=== PATIENT | female | born 1980 | race Caucasian/White ===

== ENCOUNTER 2018-10-18 23:55 | Emergency (ER) | payer MEDICAID, OTHER ==
[~2018-10-18] VITALS: Ht 167.6 cm; Wt 81.8 kg
[~2018-10-18 23:55] MED LIST: LEVE750T6 PO
[2018-10-19] MEDS ORDERED: normal saline 1000ML IV soln IVB ONE (00:05)
--- NOTE | 2018-10-19 00:29 | NUR ---
spoke to poison control macey about pt. stated 6 hr obs, ekg, watch for seizures, n/v, metabolic acidosis, agititation, and confusion. other labs have already been ordered by dr sales
[2018-10-19 00:43] LABS: BASOPHILS # (AUTO) 0.1 X10'3 (0-0.2); BASOPHILS % (AUTO) 0.6 % (0-1); EOSINOPHILS # (AUTO) 0.2 X10'3 (0-0.9); EOSINOPHILS % (AUTO) 1.9 % (0-6); HEMATOCRIT 43.2 % (35.0-45.0); LYMPHOCYTES # (AUTO) 2.3 X10'3 (1.1-4.8); LYMPHOCYTES % (AUTO) 24.5 % (21-51); MEAN CORPUSCULAR HEMOGLOBIN 31.1 PG (27.0-31.0); MEAN CORPUSCULAR HGB CONC 32.5 % (33.0-36.5); MEAN CORPUSCULAR VOLUME 95.7 FL (78-98); MEAN PLATELET VOLUME 7.5 FL (7.4-10.4); MONOCYTES # (AUTO) 0.6 X10'3 (0-0.9); MONOCYTES % (AUTO) 6.7 % (2-12); NEUTROPHILS # (AUTO) 6.1 X10'3 (1.8-7.7); NEUTROPHILS % (AUTO) 66.3 % (42-75); PLATELET COUNT 525 X10'3 (140-440); RED BLOOD COUNT 4.51 X10'6 (4.20-5.60); RED CELL DISTRIBUTION WIDTH 12.8 % (11.5-14.5); WHITE BLOOD COUNT 9.3 X10'3 (4.5-11.0)
[2018-10-19 01:08] LABS: ALANINE AMINOTRANSFERASE 30 U/L (12-78); ALBUMIN 4.1 G/DL (3.4-5.0); ASPARTATE AMINO TRANSFERASE 20 U/L (10-37); BILIRUBIN,TOTAL 0.2 MG/DL (0.1-1.0); BLOOD UREA NITROGEN 17 MG/DL (7-18)
[2018-10-19 01:19] LABS: ALKALINE PHOSPHATASE 100 IU/L (46-116); ANION GAP 14 (8-16); BUN/CREATININE RATIO 17.5 (6.6-38.0); CALCIUM 8.8 MG/DL (8.5-10.1); CHLORIDE 105 MMOL/L (99-107); CREATININE 0.97 MG/DL (0.40-0.90); GLUCOSE 119 MG/DL (70-104); SODIUM 141 MMOL/L (135-145); TOTAL CARBON DIOXIDE 22.2 MMOL/L (24-32); eGFR 64 ML/MIN
[2018-10-19 01:24] LABS: POTASSIUM 3.7 MMOL/L (3.5-5.1)
[2018-10-19 01:33] LABS: ALBUMIN/GLOBULIN RATIO 0.9 (1.1-1.5); TOTAL PROTEIN 8.5 G/DL (6.4-8.2)
[2018-10-19 01:37] LABS: ACETAMINOPHEN < 2.0 UG/ML (10-30); ETHANOL < 0.010 GM/DL (0.0-0.010)
[2018-10-19 03:36] LABS: URINE HCG NEGATIVE (NEG)
[2018-10-19 03:51] LABS: URINE AMPHETAMINE SCREEN POSITIVE (Neg); URINE BARBITUATE SCREEN NEGATIVE (Neg); URINE BENZODIAZEPINES SCREEN NEGATIVE (Neg); URINE CANNABINOID SCREEN POSITIVE (Neg); URINE COCAINE SCREEN NEGATIVE (Neg); URINE METHADONE SCREEN NEGATIVE (Neg); URINE OPIATE SCREEN NEGATIVE (Neg); URINE PHENCYCLIDINE SCREEN NEGATIVE (Neg)
--- NOTE | 2018-10-19 04:40 | NUR ---
WHEN PT WAS BEING MOVED TO OF, PT WOULD NOT GO. STATED "I WILL JUST AMA." [place] NOTIFIED AND AT BEDSIDE. MOTHER STATING THAT THIS IS NOT A MENTAL HEALTH ISSUE.
--- NOTE | 2018-10-19 04:58 | NUR ---
Patient moved to over-flow room 20. Very anxious and tearful. Changed into green scrubs, is still wearing her undergarments including a sports bra. Does not want to talk regarding circumstances that lead patient to be here.
[2018-10-19] MEDS ORDERED: TOP100T PO (05:01)
--- NOTE | 2018-10-19 05:29 | NUR ---
In bed resting. No new concerns at this time. No longer tearful. Will monitor.
--- NOTE | 2018-10-19 05:59 | NUR ---
Rec'd call from poison control, updated on status, vitals, and labs
--- NOTE | 2018-10-19 06:20 | NUR ---
Packet faxed to [facility].
--- NOTE | 2018-10-19 06:30 | NUR ---
Asleep upon change of shift observation. Breathing even and unlabored at 16. Undisturbed at this time.
--- NOTE | 2018-10-19 08:00 | NUR ---
get fired." Awakened for breakfast. Patient presents as anxious and fearful. States "I need to get out of here. I have a job to go to. I'm going to get fired." Informed patient Kiki from [facility] will speak with her this AM about her hospitalization status.
--- NOTE | 2018-10-19 09:00 | NUR ---
Kiki from [facility] at bedside speaking with patient to evaluate re: possible 5150 status.
--- NOTE | 2018-10-19 09:30 | NUR ---
Patient does not meet criteria for [address] Rodarte notified. Patient will be discharged to home with follow-up care instructions.
--- NOTE | 2018-10-19 10:11 | NUR ---
Patient discharged home with all personal possessions, via ambulatory, accompanied by mother and [id number], with all her personal possessions. Denies suicidal ideation or intent.
[2018-10-19 10:17] VITALS: BP 122/82
== END 2018-10-19 10:11 | disposition home or self-care (01) ==
LOC: EEVIPCON 23:56 → ER 23:56
DX: T42.6X2A Poisoning by other antiepileptic and sedative-hypnotic drugs, intentional self-harm, initial encounter (principal); F32.9 Major depressive disorder, single episode, unspecified; R45.851 Suicidal ideations; F17.200 Nicotine dependence, unspecified, uncomplicated; F12.90 Cannabis use, unspecified, uncomplicated; G40.909 Epilepsy, unspecified, not intractable, without status epilepticus; Z98.890 Other specified postprocedural states; Z88.5 Allergy status to narcotic agent; Y92.89 Other specified places as the place of occurrence of the external cause
CPT/HCPCS: 36415; 80053; 80305; 80320; 80329; 81025; 85025; 93005; 99284; J7030